=== PATIENT | male | born 1950 | race Caucasian/White ===

== ENCOUNTER → 2023-08-23 09:05 | Outpatient (REF) | payer MEDICARE, SELFPAY | LOC: HWRAD 09:05 | PROVIDERS: ATTENDING PHYSICIAN Family Medicine | DX: G62.9 Polyneuropathy, unspecified (principal); R74.8 Abnormal levels of other serum enzymes | CPT/HCPCS: 72110; 76700 ==

== ENCOUNTER → 2025-02-20 13:32 | Outpatient (REF) | payer MEDICARE, SELFPAY | LOC: HWRAD 13:32 | PROVIDERS: ATTENDING PHYSICIAN Urology; FAMILY PHYSICIAN Family Medicine | DX: N39.41 Urge incontinence (principal); R35.0 Frequency of micturition; R39.15 Urgency of urination; R30.0 Dysuria; N39.0 Urinary tract infection, site not specified | CPT/HCPCS: 74176 ==